=== PATIENT | female | born 1980 | race Caucasian/White ===

== ENCOUNTER → 2017-10-01 | Outpatient (CLI) | payer BC ==
[~2017-10-01] MED LIST: ACHD5005 PO; ALPR0.25 PO; CALC-308 PO; CITA10TA12 PO; CITA20TA12 PO; DOCU-143 PO; HYDR-3729 PO; L.AC1CAP6 PO; METO-333 PO; SPIR25TA PO
--- NOTE | 2017-10-01 15:28 | Diagnostic Imaging Report ---
INDICATION: Routine screening. COMPARISON: 05/08/2016 and 02/25/2015. TECHNIQUE: Bilateral CC and MLO 3D mammography was performed with implant technique. The current study was also evaluated with a Computer Aided Detection (CAD) system. FINDINGS: Bilateral breast implants are again noted. The implant contours are smooth. No definite evidence of extra capsular rupture is identified. Scattered fibroglandular densities are identified bilaterally. No mass or malignant appearing microcalcifications are seen. The axillae are unremarkable. IMPRESSION: No mammographic features suspicious for malignancy are identified. ACR BI-RADS Category 2: Benign findings. Result letter will be mailed to the patient. Note: At least 10% of breast cancer is not imaged by mammography. Dictated by: Dictated on workstation # [id number]
== END ==
LOC: RAD 08:59
DX: Z12.31 Encounter for screening mammogram for malignant neoplasm of breast (principal)
CPT/HCPCS: 77067

== ENCOUNTER → 2019-02-17 | Outpatient (CLI) | payer BC ==
--- NOTE | 2019-02-17 12:42 | Diagnostic Imaging Report ---
INDICATION: Routine screening. COMPARISON: Comparison is made with prior mammograms from 10/01/2017 and 05/08/2016. TECHNIQUE: 2-D and 3-D bilateral screening mammography was performed. The current study was also evaluated with a Computer Aided Detection (CAD) system. 3-D tomosynthesis was also performed and reviewed. FINDINGS: Bilateral breast implants are again noted. Implant contours remain stable. The breasts are heterogeneously dense, limiting the sensitivity of mammography. No mass or malignant-appearing microcalcifications are seen. The axillae are unremarkable. IMPRESSION: No mammographic features suspicious for malignancy are identified. ACR BI-RADS Category 2: Benign findings. Result letter will be mailed to the patient. Note: At least 10% of breast cancer is not imaged by mammography. Dictated by: Dictated on workstation # [id number]
== END ==
LOC: RAD 09:15
DX: Z12.31 Encounter for screening mammogram for malignant neoplasm of breast (principal)
CPT/HCPCS: 77067

== ENCOUNTER → 2020-06-16 | Outpatient (CLI) | payer BC, OTHER ==
--- NOTE | 2020-06-16 17:52 | Diagnostic Imaging Report ---
INDICATION: Screening. At this time there are no current complaints. EXAMINATION: Digital mammogram bilateral screening. 3D tomographic images were obtained and reviewed. The current study was also evaluated with a Computer Aided Detection (CAD) system. COMPARISON: This study was compared to the prior exams of 02/17/2019, 10/01/2017 and 05/08/2016. FINDINGS: There are bilateral breast implants in place. The implants appear similar to the prior exam. There is no sign of an extracapsular rupture of either implant. The fibroglandular tissue overlying the implants is heterogeneously dense. This does limit the sensitivity of this exam. On the implant craniocaudad view there is a small fairly well-circumscribed 8 mm asymmetry along the anterior aspect of the implant in the medial portion of the breast. This finding cannot be identified on the MLO view or on the pinch views. Consequently, this could be secondary to fibroglandular tissue alone. The possibility that there is an underlying abnormality should still be considered, however. I would recommend that repeat spot tomographic views of the left breast in the CC projection be performed. Compression views in the CC projection should also be obtained. Ultrasound of this portion of the breast would be recommended as well. The right breast is unchanged. IMPRESSION: 1. Additional mammographic views and ultrasound of the left breast would be recommended for further study. 2. There is no evidence for malignancy involving the right breast and the implants appear stable. ACR BI-RADS Category 0: Incomplete. (Needs additional imaging evaluation). Result letter will be mailed to the patient. Note: At least 10% of breast cancer is not imaged by mammography. Dictated by: Dictated on workstation # [id number]
== END ==
LOC: RAD 09:58
DX: Z12.31 Encounter for screening mammogram for malignant neoplasm of breast (principal)
CPT/HCPCS: 77063; 77067

== ENCOUNTER → 2020-07-02 | Outpatient (CLI) | payer OTHER ==
--- NOTE | 2020-07-02 13:48 | Diagnostic Imaging Report ---
INDICATION: Left breast density. Patient presents for additional views. CORRELATION is made with screening study from 06/16/2020. Unilateral left 2-D and 3-D diagnostic mammography was performed. This includes spot compression CC and repeat conventional CC view of the left breast. Additional views failed to demonstrate a discrete mass. The focal nodular density noted previously is no longer present. This may have represented superimposed tissue. There is no mass or malignant-appearing microcalcifications. IMPRESSION: BI-RADS Category 2 Additional views fail to demonstrate a discrete mass. The patient may return to routine annual screening mammography. ACR BI-RADS Category 2: Benign findings. Result letter will be mailed to the patient. Note: At least 10% of breast cancer is not imaged by mammography. Dictated by: Dictated on workstation # [id number]
== END ==
LOC: RAD 13:15
DX: R92.2 Inconclusive mammogram (principal); R92.8 Other abnormal and inconclusive findings on diagnostic imaging of breast
CPT/HCPCS: 77065; G0279

== ENCOUNTER → 2020-07-20 | Outpatient (CLI) | payer OTHER ==
--- NOTE | 2020-07-20 08:46 | Diagnostic Imaging Report ---
PROCEDURE: US Gallbladder. TECHNIQUE: Multiple real-time grayscale images were obtained over the right upper quadrant in various projections. INDICATION: Right upper quadrant abdominal pain FINDINGS: Grayscale imaging of the gallbladder reveals no intraluminal filling defect. There is no gallbladder wall thickening or pericholecystic fluid. No intra or extrahepatic biliary ductal dilatation is identified. Retroperitoneal structures are partially obscured by overlying bowel. No pancreatic, right renal, abdominal aortic or inferior vena caval abnormality is documented. No ascites was noted. IMPRESSION: Unremarkable gallbladder ultrasound. Dictated by: Dictated on workstation # [id number]
== END ==
LOC: RAD 07:45
DX: R10.11 Right upper quadrant pain (principal)
CPT/HCPCS: 76705

== ENCOUNTER → 2021-08-31 | Outpatient (CLI) | payer OTHER ==
--- NOTE | 2021-08-31 12:22 | Diagnostic Imaging Report ---
INDICATION: Routine screening. COMPARISON: 06/16/2020 and 02/17/2019. TECHNIQUE: 2D and 3D bilateral screening mammography was performed with CAD. FINDINGS: Bilateral breast implants are again noted. The implant contours remain smooth. Breast parenchyma is heterogeneously dense, limiting the sensitivity of mammography. The parenchymal pattern pattern is stable. No mass or malignant-appearing microcalcifications are seen. The axillae are unremarkable. IMPRESSION: No mammographic features suspicious for malignancy are identified. ACR BI-RADS Category 2: Benign findings. Result letter will be mailed to the patient. Note: At least 10% of breast cancer is not imaged by mammography. Dictated by: Dictated on workstation # [id number]
== END ==
LOC: RAD 10:30
PROVIDERS: ATTEND Obstetrics & Gynecology
DX: Z12.31 Encounter for screening mammogram for malignant neoplasm of breast (principal)
CPT/HCPCS: 77063; 77067

== ENCOUNTER → 2022-10-10 | Outpatient (CLI) | payer OTHER ==
--- NOTE | 2022-10-10 11:25 | Diagnostic Imaging Report ---
INDICATION: Bilateral 3D screening mammograms. TECHNIQUE/COMPARISON: Routine and implant displaced views of both breasts were obtained with comparison made to studies of 10/10/2022 and 06/16/2020. FINDINGS: Bilateral breast implants remain in place without morphologic change. Benign calcification is again noted in the medial left breast posteriorly. No new dominant mass or suspicious calcification is identified. IMPRESSION: Category 2, benign findings. Bilateral breast implants limit mammographic sensitivity. Continued physical examination and annual mammographic followup are recommended. ACR BI-RADS Category 2: Benign findings. Result letter will be mailed to the patient. Note: At least 10% of breast cancer is not imaged by mammography. Dictated by: Dictated on workstation # [id number]
== END ==
LOC: RAD 08:46
PROVIDERS: ATTEND Obstetrics & Gynecology
DX: Z12.31 Encounter for screening mammogram for malignant neoplasm of breast (principal); Z98.82 Breast implant status
CPT/HCPCS: 77063; 77067